=== PATIENT | male | born 1980 | race Caucasian/White ===

== ENCOUNTER → 2017-08-17 | Outpatient (REF) | LOC: AUD 08:30 | PROVIDERS: ATTEND Internal Medicine | DX: Z01.10 Encounter for examination of ears and hearing without abnormal findings (principal) | CPT/HCPCS: 92552 ==

== ENCOUNTER → 2018-11-03 | Outpatient (REF) | LOC: AUD 09:50 | PROVIDERS: ATTEND Internal Medicine | DX: Z01.12 Encounter for hearing conservation and treatment (principal) | CPT/HCPCS: 92552 ==

== ENCOUNTER → 2019-02-10 | Outpatient (CLI) | payer OTHER ==
--- NOTE | 2019-02-10 16:11 | RADIOLOGY IMAGING REPORT ---
FACILITY: [facility] PATIENT NAME: Christophe Richardson : 1980 MR: [id number] V: [id number] EXAM DATE: ORDERING PHYSICIAN: LETY MANLEY TECHNOLOGIST: Location: [facility] - [place] Patient: Christophe Richardson : 1980 Visit/Account:[id number] Date of Sevice: 02/10/2019 MR PELVIS W/O CON HISTORY: Right pelvic pain COMPARISON: None TECHNIQUE: Multiplanar/multisequence was obtained through the pelvis without intravenous contrast. CONTRAST: None FINDINGS: Right hip: Joint space: Normal Bone marrow: Normal Effusion: None Other findings: None significant Left hip: Joint space: Normal Bone marrow: Normal Effusion: None Other findings: None significant Soft tissues: Marker placed at the right anterior mid pelvis. No soft tissue mass, fluid collection o r edema. Underlying rectus musculature is unremarkable. No evidence of hernia. Bony pelvis: Normal Pubic symphysis and SI joints: Minimal bone marrow edema at the left aspect of the pubic symphysis. M inimal edema at the right adductor longus origin. Myotendinous structures: Mild bilateral hamstring tendinosis. Intrapelvic and lower abdominal findings: None significant Visualized spine: Central disc protrusions with annular tears from L4-S1. Other findings: None significant IMPRESSION: 1. Minimal bone marrow edema at the left aspect of the pubic symphysis. Minimal edema at the right ad ductor longus origin. These findings can be seen with athletic pubalgia. No evidence of significant t ear. 2. Mild bilateral hamstring tendinosis without high-grade tear. Report Dictated By: Chris Macario MD at 02/10/2019 3:52 PM Report E-Signed By: Chris Macario MD at 02/10/2019 4:03 PM WSN:[id number]
== END ==
LOC: MRI 07:29
PROVIDERS: ATTEND Family Medicine
DX: M76.891 Other specified enthesopathies of right lower limb, excluding foot (principal); M76.892 Other specified enthesopathies of left lower limb, excluding foot
CPT/HCPCS: 72195